=== PATIENT | female | born 1980 | race Caucasian/White ===

== ENCOUNTER 2016-09-03 11:45 | Emergency (ER) | payer MEDICAID ==
[2016-09-03 12:14] VITALS: BP 133/90
--- NOTE | 2016-09-03 13:24 | UC ---
Mavis Shannon Rebecca, scribed for Angelic Crews MD on 09/03/16 at 1323 . Eye Complaint HPI - HPI Summary HPI Summary: Pt is a 35 y/o F who presents to [facility] c/o bilateral eye irritation and erythema, with the L being significantly worse. Reports she has been keeping the L eye "at bay" for a month, with sx worsening 2 days ago using home remedies.. Reports yellow/green drainage. Pt states both eyes crusting this morning. Associated pain is currently mild, ranked 2/10 and characterized as discomfort and pressure that is "deeper behind my eye." PT also reports sinus congestion and pressure. Pt states used a netti pot 1 month ago. State did not clean it and developed pressure and discomfort. Pt went to pcp and decided to wait on abx. Pt states used saline flushes without improvement, increased pressure when leaning foward, Additionally c/o ear pain, sinus congestion, nasal discharge and slightly blurred vision. Denies fever, chills but states she "doesn't feel that great." Sx aggravated and alleviated by nothing. No PMHx seasonal allergies. NKDA. No corrective lenses Patient's medications reviewed this visit. - History of Current Complaint Chief Complaint: UCEye Stated Complaint: PINK EYE Time Seen by Provider: 09/03/16 13:20 Hx Obtained From: Patient Hx Last Menstrual Period: 08/01/15 Onset/Duration: Still Present, Worse Since - 2 days ago Severity Currently: Mild Pain Intensity: 2 Pain Scale Used: 0-10 Numeric Character: Dull - Discomfort and pressure Aggravating Factor(s): Nothing Alleviating Factor(s): Nothing Associated Signs And Symptoms: Positive: Drainage (Purulent) - Allergies/Home Medications Allergies/Adverse Reactions: Allergies Allergy/AdvReac Type Severity Reaction Status Date / Time No Known Allergies Allergy Verified 09/03/16 12:07 PMH/Surg Hx/FS Hx/Imm Hx Previously Healthy: Yes - Surgical History Surgical History: None - Family History Known Family History: Negative: Cardiac Disease, Hypertension, Diabetes - Social History Alcohol Use: None Substance Use Type: None Substance Use Comment - Amount & Last Used: Past user-no longer uses pot Smoking Status (MU): Never Smoked Tobacco Type: Cigarettes Length of Time of Smoking/Using Tobacco: five years Have You Smoked in the Last Year: No When Did the Patient Quit Smoking/Using Tobacco: 2010 - Immunization History Hx Tetanus, Diphtheria Vaccination: No Vaccination Up to Date: No Review of Systems Constitutional: Negative Skin: Negative Eyes: Blurred Vision - Slight, Drainage - Yellow/green, Eye Redness, Other - Bilateral eye pain ENT: Ear Ache, Nasal Discharge, Sinus Congestion Respiratory: Negative Cardiovascular: Negative Gastrointestinal: Negative Genitourinary: Negative Motor: Negative Neurovascular: Negative Musculoskeletal: Negative Neurological: Negative Psychological: Negative All Other Systems Reviewed And Are Negative: Yes Physical Exam Triage Information Reviewed: Yes Appearance: Well-Appearing, No Pain Distress, Well-Nourished Vital Signs: Initial Vital Signs Temp 98.4 F 09/03/16 12:09 Pulse 82 09/03/16 12:09 Resp 16 09/03/16 12:09 BP 133/90 09/03/16 12:09 Pulse Ox 100 09/03/16 12:09 Vital Signs Reviewed: Yes Eyes: Positive: Conjunctiva Inflamed, Discharge, Other: - ELIANA, EOM intact and full b/l injection L>R Pt with yellow discharge right eye No discomfort with ROM ENT: Positive: Normal ENT inspection, Hearing grossly normal. Negative: Pharynx normal - TM x 2 with mild fluid L>r no erythema, no retraction turbinates inflamemd and boggy + TTP b/l max sinuss l>R + pnd no erythema, no exudate Neck exam: Normal Neck: Positive: Supple, Nontender, No Lymphadenopathy Respiratory Exam: Normal Cardiovascular Exam: Normal Cardiovascular: Positive: RRR, No Murmur, Pulses Normal Abdominal Exam: Normal Abdomen Description: Positive: Nontender, No Organomegaly, Soft Neurological Exam: Normal Psychological Exam: Normal Eye Complaint Course/Dx - Course Course Of Treatment: Pt with progession to b/l eye injection, discharge R>L. Pt with sinus congestion, facial pressure. Rx amox, polytrim. pcp f/u - Differential Dx/Diagnosis Provider Diagnoses: sinusitis, conjunctivitis Discharge - Discharge Plan Condition: Stable Disposition: HOME Prescriptions: Amoxicillin PO (*) [Amoxicillin 875 MG (*)] 875 mg PO BID #20 tab Polymyx/Trimethoprim OPTH* [Polytrim OPHTH*] 1 drop BOTH EYES TID #1 btl Patient Education Materials: Sinusitis (ED), Conjunctivitis (ED) Referrals: No Primary Care Phys,NOPCP [Primary Care Provider] - Additional Instructions: - Stay well hydrated. Drink plenty of non-alcoholic, non-caffinated beverages - apply eye drops as prescribed - take care not to touch the eye drop bottle to your eye lids - Take antibiotics as prescribed until gone. Take with food. This may cause diarrhea - eating yogurt sometimes help with this After you have been on antibiotics for 2 days - change your toothbrush and your pillowcase. These infections are spread by secretions - do NOT share eating or drinking utensils - clean items you share with other people such as cell phones , computer mouse, TV remote, computer tablets, etc - Contact your doctor or return to the emergency department with questions or concerns The documentation as recorded by the Mavis espinoza Rebecca accurately reflects the service I personally performed and the decisions made by me, Angelic Crews MD.
== END 2016-09-03 13:45 | disposition home or self-care (01) ==
LOC: UCEAST 11:45
DX: J32.9 Chronic sinusitis, unspecified (principal); H10.9 Unspecified conjunctivitis
CPT/HCPCS: 99212; G0463

== ENCOUNTER 2017-08-01 20:16 | Emergency (ER) | payer OTHER ==
--- NOTE | 2017-08-01 21:08 | UC ---
Eye Complaint HPI - HPI Summary HPI Summary: 36 y/o female presents to the urgent care c/o C/O LEFT EYE IRRITATION AND DISCHARGE STARTING AT ~1400 TODAY. DENIES VISUAL DISTURBANCE. STATES IT FEELS LIKE THERE IS SOMETHING BEHIND HER EYE. PT STATES SHE HAS THE EPISODES ~4 TIMES PER YEAR. - History of Current Complaint Chief Complaint: UCEye Stated Complaint: LEFT EYE COMPLAINT Time Seen by Provider: 08/01/17 20:53 Hx Obtained From: Patient Hx Last Menstrual Period: 07/22/17 Pain Intensity: 2 - Allergies/Home Medications Allergies/Adverse Reactions: Allergies Allergy/AdvReac Type Severity Reaction Status Date / Time No Known Allergies Allergy Verified 08/01/17 20:50 Home Medications: Home Medications NK [No Home Medications Reported] 08/01/17 [History Confirmed 08/01/17] PMH/Surg Hx/FS Hx/Imm Hx - Surgical History Surgical History: None - Family History Known Family History: Negative: Cardiac Disease, Hypertension, Diabetes - Social History Alcohol Use: Occasionally Substance Use Type: None Substance Use Comment - Amount & Last Used: Past user-no longer uses pot Smoking Status (MU): Former Smoker Type: Cigarettes Length of Time of Smoking/Using Tobacco: five years Have You Smoked in the Last Year: No When Did the Patient Quit Smoking/Using Tobacco: 2010 - Immunization History Hx Tetanus, Diphtheria Vaccination: No Vaccination Up to Date: No Physical Exam - Summary Physical Exam Summary: Vital Signs Reviewed: Yes General: Well appearing, well nourished female in no apparent pain distress Eyes: Positive: Conjunctiva Inflamed - Visual acuity: WNL,Visual brewster: full to confrontation.mild periorbital soft tissue swelling at the RT upper eyelid with erythema and white small pustule in the medial side of eyelid, tender to palpation. PERRLA, EOMI intact w/out limitation or complaint of pain. eyelashes clear. mild tearing and yellowish drainage observed. No ciliary flush. No chemosis, No photophobia. Normal fundoscopic exam; no proptosis, exophthalmos, nystagmus. ENT: Positive: Normal ENT inspection, Hearing grossly normal, Pharynx normal, Nasal congestion, Nasal drainage - clear, TMs normal - B/L external ear canal clear , TM's WNL. Negative: Tonsillar swelling, Tonsillar exudate Neck: Positive: Supple, Nontender, No Lymphadenopathy Respiratory: Positive: Chest nontender, Lungs clear, Normal breath sounds, No respiratory distress Cardiovascular: Positive: RRR, No Murmur, Pulses Normal, Brisk Capillary Refill Abdomen Description: Positive: Nontender, No Organomegaly, Soft. Negative: CVA Tenderness (R), CVA Tenderness (L) Bowel Sounds: Positive: Present Musculoskeletal: Positive: Strength Intact, ROM Intact, No Edema Neurological Exam: Normal Psychological Exam: Normal Skin Exam: Normal Triage Information Reviewed: Yes Vital Signs: Initial Vital Signs Temp 98.2 F 08/01/17 20:44 Pulse 106 08/01/17 20:44 Resp 16 08/01/17 20:44 BP 138/104 08/01/17 20:44 Pulse Ox 100 08/01/17 20:44 Eye Complaint Course/Dx - Differential Dx/Diagnosis Differential Diagnosis/HQI/PQRI: Conjunctivitis, Corneal Abrasion, Foreign Body , Penetrating Injury, Periorbital Cellulitis, Orbital Cellulitis, Uveitis Provider Diagnoses: 1- Left eye internal hordeolum Discharge - Discharge Plan Condition: Stable Disposition: HOME Referrals: Roseanna CLEMENT,Krystin Finney [Primary Care Provider] - - Billing Disposition and Condition Condition: STABLE Disposition: Home
[2017-08-01] MEDS ORDERED: Eye Irrigation Solution 30 ML BOTTLE LEFT EYE ONE (21:24)
[2017-08-01] MEDS ORDERED: Tetracaine 0.5% OPTH.SOL 4 ML* 1 DROP BTL LEFT EYE ONE (21:24)
[2017-08-01] MEDS ORDERED: Fluorescein Sod TOPICAL 0.6* 0.6 MG TEST OPHTHALMIC ONE (21:24)
[2017-08-01] MEDS ORDERED: Erythromycin OPTH OINT* APPLIC OINT LEFT EYE ONE (21:44)
[2017-08-01 21:52] VITALS: BP 141/95
== END 2017-08-01 22:06 | disposition home or self-care (01) ==
LOC: UCEAST 20:16
DX: H00.024 Hordeolum internum left upper eyelid (principal); Z87.891 Personal history of nicotine dependence
CPT/HCPCS: 99212; A9270-GY; G0463

== ENCOUNTER 2018-09-15 07:58 | Emergency (ER) | payer OTHER ==
[2018-09-15 08:08] VITALS: BP 109/78
--- NOTE | 2018-09-15 09:03 | UC ---
Dental HPI - HPI Summary HPI Summary: 37-year-old female who presents with left foot pain and right sided dental pain. Patient states several days ago she began having worsening pain in her right upper molar where she has known cavity and filling fell out. Patient has been irrigating with hydrogen peroxide which helped. Reporting 2/10 achy pain located in the right upper molar area. No jaw pain, trouble swallowing, fevers. The patient also reported she stepped on a broken lamp with her left foot yesterday and one at the laceration checked out. Patient irrigated the laceration at home. Patient is UTD tetanus. - History of Current Complaint Chief Complaint: UCLowerExtremity Stated Complaint: TOOTH PAIN FOOTINJURY Time Seen by Provider: 09/15/18 08:11 Hx Last Menstrual Period: 09/09/18 Pain Intensity: 1 - Allergies/Home Medications Allergies/Adverse Reactions: Allergies Allergy/AdvReac Type Severity Reaction Status Date / Time No Known Allergies Allergy Verified 09/15/18 08:04 PMH/Surg Hx/FS Hx/Imm Hx Previously Healthy: Yes - Surgical History Surgical History: None - Family History Known Family History: Positive: None - Pt denies FMHX Negative: Cardiac Disease, Hypertension, Diabetes - Social History Alcohol Use: Occasionally Substance Use Type: None Substance Use Comment - Amount & Last Used: Past user-no longer uses pot Smoking Status (MU): Former Smoker Type: Cigarettes Length of Time of Smoking/Using Tobacco: five years Have You Smoked in the Last Year: No When Did the Patient Quit Smoking/Using Tobacco: 2010 - Immunization History Hx Tetanus, Diphtheria Vaccination: No Vaccination Up to Date: No Review of Systems All Other Systems Reviewed And Are Negative: Yes Skin: Positive: Other - laceration ENT: Positive: Dental Pain Physical Exam - Summary Physical Exam Summary: Constitutional: Well-developed, Well-nourished, Alert. (-) Distressed Skin: 2 cm superficial laceration to plantar surface of left foot HENT: Normocephalic; dental carry with exposed root to the second right premolar. No apical abscesses. No trismus Eyes: Conjunctiva normal Neck: Musculoskeletal ROM normal neck. (-) JVD, (-) Stridor Pulmonary/Chest wall: EWOB on RA Abd: non distended Musculoskeletal: Mild tenderness to the plantar surface of the left foot . (-) Edema Lymph: (-) Cervical adenopathy Neuro: Alert, Oriented x3 Psych: Mood and affect Normal Vital Signs: Initial Vital Signs Temp 36.6 C 09/15/18 08:05 Pulse 68 09/15/18 08:05 Resp 18 09/15/18 08:05 BP 109/78 09/15/18 08:05 Pulse Ox 100 09/15/18 08:05 Dental Complaint Course/Dx - Course Course Of Treatment: 37-year-old female presents with 2 complaints 1) dental pain secondary to dental caries - no abscesses to drain, no red flags , no trismus. PCN rx. Patient has outpatient follow-up with her dentist 2) laceration to bottom of left foot. X-ray foreign body. Patient UTD on her tetanus. Given Band-Aid as no laceration repair is required - Differential Dx/Diagnosis Differential Diagnosis/Dx: Dental Caries Provider Diagnosis: Foot laceration Discharge - Sign-Out/Discharge Documenting (check all that apply): Patient Departure All imaging exams completed and their final reports reviewed: Yes - Discharge Plan Condition: Stable Disposition: HOME Prescriptions: Penicillin VK 500 MG TAB(NF) [Penicillin VK 500 mg Tab] 500 mg PO QID 7 Days # 28 tab Patient Education Materials: Toothache (ED) Referrals: Krystin Condon PA [Primary Care Provider] - Additional Instructions: You were seen for dental pain Follow up with your dentist Return to the hospital for: -increased swelling -difficulty swallowing -difficulty breathing -fever -increased pain - Billing Disposition and Condition Condition: STABLE Disposition: Home
== END 2018-09-15 09:08 | disposition home or self-care (01) ==
LOC: UCEAST 07:58
DX: S91.312A Laceration without foreign body, left foot, initial encounter (principal); W26.9XXA Contact with unspecified sharp object(s), initial encounter; Y92.019 Unspecified place in single-family (private) house as the place of occurrence of the external cause; K02.9 Dental caries, unspecified; Z87.891 Personal history of nicotine dependence
CPT/HCPCS: 99212; G0463